=== PATIENT | male | born 2000 | race Caucasian/White ===

== ENCOUNTER 2024-10-24 10:45 | Emergency (ER) | payer OTHER ==
[~2024-10-24] VITALS: Ht 182.9 cm; Wt 113.0 kg
--- NOTE | 2024-10-24 11:34 | ELECTROCARDIOGRAPH REPORT ---
[facility] Test Date: 2024-10-24 Test Time: 11:33:03 Pat Name: ROMAINE VILLAR Department: [facility] Patient ID: [facility]-[id number] Room: Gender: M Associate Programmer: : 2000 Requested By: ETTA ALONZO Order Number: [id number] Reading MD: Dr. Armando Jimenez Measurements Intervals [place] Rate: 65 P: 0 [place]: 0 QRS: 109 QRSD: 95 T: 7 QT: 377 QTc: 392 Interpretive Statements Junctional rhythm Borderline right axis deviation Baseline wander in lead(s) III Electronically Signed On 10-24-2024 19:43:[address] Armando Jimenez Please click the below link to view image of tracing.
[2024-10-24 11:42] LABS: MEAN PLATELET VOLUME 8.5 FL (7.4-10.4); RED CELL DISTRIBUTION WIDTH 14.0 % (11.5-14.5)
[2024-10-24 11:59] LABS: CREATININE 1.02 MG/DL (0.60-1.10); PRO BRAIN NATRIURETIC PEPTIDE 111 PG/ML (0-125); TOTAL CARBON DIOXIDE 27.9 MMOL/L (24-32); eCRCL 122 ML/MIN; eGFR 89 ML/MIN
--- NOTE | 2024-10-24 12:08 | RADIOLOGY REPORT ---
CHEST RADIOGRAPH Indication: CP Technique: Single frontal view of the chest was obtained Comparison: None FINDINGS: Lines and Tubes: None Lungs: No focal consolidation. Pleura: No effusion. No pneumothorax. Cardiomediastinal contours: Unremarkable Bones: No acute osseous abnormality. IMPRESSION: 1. No acute cardiopulmonary disease.
--- NOTE | 2024-10-24 14:19 | Physician Documentation ---
History of Present Illness ~ General Chief Complaint: Multiple Medical Complaints Stated Complaint: SEE CHIEF COMPLAINT Time Seen by MD: 14:07 OK to notify your PCP?: Yes Source: patient Mode of Arrival: POV, Ambulatory Exam Limitations: no limitations History of Present Illness Initial Comments 24-year-old male with multiple medical complaints that are vague. He states that this all started 9 days ago. He says it started with an episode of dizziness when he was getting something out of the oven and then that caused him to sit down and it self-resolved. The next day he woke up and had a sore throat which has since resolved. He states that he feels extremely thirsty but as soon as he starts to drink water, he loses his appetite. He states that he has not had any food today and does not have any appetite. He does have some constipation but no abd pain, diarrhea or nausea or vomiting. Denies any current dizziness but he states that sometimes he does get dizzy if he is standing outside in the heat for too long. Denies any cardiac problems. Review of Systems All Other Systems at this time: Reviewed and Negative Physical Exam Physical Exam Vital Signs: RN Vital Signs have been reviewed: Yes, Temperature: 99.8, Source: Oral, Heart Rate: 94, Respiratory Rate: 22, BP: 114/59, Pulse Oximetry: 96, Weight: 113.000 Oxygen Flow Rate: 0 Pulse Oximetry Reflects: adequate oxygenation Progress Results/Orders Reviewed/noted all lab results: Yes Results/Orders Vital Signs 10/24/24 10/24/24 10/24/24 11:11 13:39 13:43 Temp 99.8 Pulse 120 94 Resp 18 22 B/P (MAP) 128/92 114/59 (77) Pulse Ox 97 96 O2 Flow Rate 0 Laboratory Tests Test 10/24/24 11:30 10/24/24 13:03 10/24/24 14:14 White Blood Count 7.0 Red Blood Count 5.31 Hemoglobin 14.6 Hematocrit 43.5 Mean Corpuscular Volume 81.9 Mean Corpuscular Hemoglobin 27.5 Mean Corpuscular Hemoglobin Concent 33.5 Red Cell Distribution Width 14.0 Platelet Count 244 Mean Platelet Volume 8.5 Neutrophils (%) (Auto) 29.1 L Lymphocytes (%) (Auto) 57.1 H Monocytes (%) (Auto) 11.1 Eosinophils (%) (Auto) 1.3 Basophils (%) (Auto) 1.4 H Neutrophils # (Auto) 2.0 Lymphocytes # (Auto) 4.0 Monocytes # (Auto) 0.8 Eosinophils # (Auto) 0.1 Basophils # (Auto) 0.1 CBC Comment Sodium Level 136 Potassium Level 4.0 Chloride Level 100 Carbon Dioxide Level 27.9 Anion Gap 8 Blood Urea Nitrogen 6 L Creatinine 1.02 Estimated GFR/1.73 m2 89 BUN/Creatinine Ratio 5.9 L Glucose Level 95 Calcium Level 8.7 Troponin I High Sensitivity 4 < 4 L Pro-B-Type Natriuretic Peptide 111 Albumin 3.3 L Chemistry Comments Troponin I High Sens Percent Delta Troponin I Hi Sens Absolute Change EKG/XRAY/CT/US/VASC/MRI EKG : Additional Comment Electrocardiogram: as interpreted by me; normal sinus rhythm, no axis deviation, no acute ischemia, normal intervals, no pre-excitation pattern. Rate: Chest X-Ray : Additional Comments Chest x-ray: as interpreted by me; no large effusion, no large infiltrate, normal mediastinum. Heart Score: Heart Score Response (Comments) Value History N/A 0 EKG Normal 0 Age <45 0 Risk Factors No known risk factors 0 Troponin Normal limit 0 Total 0 Medical Decision Making Findings He states that he has been having these symptoms for the last 9 days. He has multiple medical complaints which are all generalized and vague. It does sound like he has had and vasovagal near-syncope episode while getting food out of the oven which caused him to have to sit down. Since then he has had decreased appetite but increased thirst and states I body is not absorbing the water. He states it soon as he drinks water he does not feel satiated. He has no abdomi nal pain, nausea, vomiting or diarrhea. He is not having any chest pain or shortness of breath. We discussed that he needs to increase his water intake but that his labs are unremarkable, and troponins were negative. His chest x- ray and EKG were normal He was given follow up instructions and return instructions. Differential Diagnosis Dehydration, viral illness, vertigo, [place], CVA, diabetes. Departure Disposition: 01 HOME / SELF CARE / HOMELESS Impression: Primary Impression: Vasovagal near-syncope Condition: Stable Discharge Instructions: Syncope, Adult, [id number] Additional Instructions: Follow up with her primary care provider within the next week and return back here for any new or worsening symptoms. Referrals: NO PRIMARY CARE PROVIDER (PCP) Education Educated: Patient Educated regarding: diagnosis, treatment, prognosis, need for follow up Additional Comment Medical Screen Exam This patient recieved a medical screening examination. After reviewing the individual's medical complaints with presenting symptoms and performing an appropriate physical examination, it was determined that no immediate life- threatening emergency medical condition is present. This individual is also not a women having contractions. Signature Scribe Signature: . Attestation: Scribed for Berta Flores Building Energy Retrofit Technician by Berta Alcaraz NP . 10/24/24 14:30 Parts of this note were created using [employer] voice recognition software program. While efforts were made to correct any mistakes made by this voice recognition software program, nonsensical phrases may remain in this note. In addition, there may be errors and syntax, grammar, content and spelling. BERTA FLORES STRIKE OPERATIONS OFFICER Oct 24, 2024 14:19
[2024-10-24 14:47] VITALS: BP 124/52; PULSE 86; RESP 23; TEMP 98.2; O2SAT 96
== END 2024-10-24 14:55 | disposition home or self-care (01) ==
LOC: ER 10:46
DX: R55 Syncope and collapse (principal); K59.00 Constipation, unspecified; J02.9 Acute pharyngitis, unspecified; R42 Dizziness and giddiness
CPT/HCPCS: 36415; 71045; 80048; 83880; 84484; 85025; 93005; 99285